=== PATIENT | female | born 1985 | race Caucasian/White ===

== ENCOUNTER 2019-07-12 07:26 | Observation (INO) ==
[~2019-07-12 07:26] MED LIST: BUPIVACAINE 0.25% W/ EPI - 10 ML VIAL ONE; CefOXitin Inj 2 GM in Sodium Chloride 0.9% 100 ML IV ONE; LIDOCAINE HCL 2 % 10 ML JELLY URO-JECT TOPICAL ONE; LIDOCAINE W/ SODIUM BICARB 0.5 ML SYR ONE; LIDOCAINE W/ SODIUM BICARB 0.5 ML SYR SUBD PRN; Lactated Ringers 1,000 ML PRIMARY IV ONE; Nasal Sanitizer POPSWAB ampule 3 AMP (Nozin) PREOP DOSE ENOS SCH; Sodium Chloride 0.9% 100 ML IV ONE
[2019-07-12 07:43] LABS: BILIRUBIN,URINE NEGATIVE (NEG); CLARITY,URINE Slightly Cloudy (CLEAR); COLOR,URINE YELLOW (Y); GLUCOSE, URINE (UA) NEGATIVE (NEG); OCCULT BLOOD,URINE LARGE (NEG); PH,URINE 5.5 (5.0-8.5); PROTEIN,URINE 100 mg/dl (NEG); UROBILINOGEN,URINE 0.2 EU/dL (0.2)
[2019-07-12 07:49] LABS: BACTERIA,URINE FEW; RBC,URINE 50-60 /hpf; RENAL EPITHELIAL CELLS,URINE MODERATE; SQUAMOUS EPITHELIAL CELL,UR MANY; URINE SAMPLE TYPE VOIDED SPECIMEN
[2019-07-12 08:03] LABS: Hematocrit [HCT] 35.9 % (37.0-47.0); Hemoglobin [HGB] 10.9 g/dL (12.0-16.0)
[2019-07-12] MEDS: Lactated Ringers 1,000 ML PRIMARY IV SCH ×2 (08:05→17:47)
[2019-07-12] MEDS ORDERED: ROCURONIUM 10 MG/1 ML - 5 ML VIAL IVP ONE ×3 (08:11→09:58)
[2019-07-12] MEDS ORDERED: MIDAZOLAM HCL 2 MG/2 ML VIAL ONE (08:12)
[2019-07-12] MEDS ORDERED: PROPOFOL 10 MG/1 ML (200 MG/20 ML) VIAL IV ONE (08:12)
[2019-07-12] MEDS ORDERED: fentaNYL Inj 250 MCG/5 ML VIAL ONE (08:12)
[2019-07-12] MEDS ORDERED: LIDOCAINE MPF 2% - 5 ML (20 MG/1 ML) ONE (08:12)
[2019-07-12] MEDS ORDERED: BUPIVACAINE 0.5% W/ EPI - 10 ML VIAL ONE ×2 (08:48→09:57)
[2019-07-12] MEDS ORDERED: KETOROLAC 30 MG/1 ML VIAL ONE (08:55)
[2019-07-12] MEDS ORDERED: ONDANSETRON 4 MG/2 ML VIAL ONE ×2 (08:55→13:16)
[2019-07-12] MEDS ORDERED: KETAMINE 100 MG/1 ML - 5 ML ONE (08:56)
[2019-07-12] MEDS ORDERED: Lactated Ringers 1,000 ML PRIMARY IV ONE ×2 (09:19→17:46)
[2019-07-12] MEDS ORDERED: LIDOCAINE HCL 2 % 10 ML JELLY URO-JECT TOPICAL PRN ×2 (09:20→11:41)
[2019-07-12] MEDS ORDERED: SUGAMMADEX SODIUM 200 MG/2 ML VIAL IV ONE (10:29)
[2019-07-12] MEDS ORDERED: Opium-Belladonna 30-16.2mg 1 EACH SUPP.RECT RECTAL ONE ×2 (11:08→11:15)
[2019-07-12] MEDS ORDERED: IBUPROFEN 800 MG TABLET PO PRN (11:41)
[2019-07-12] MEDS ORDERED: Ondansetron ODT Tab 8 MG TAB PO PRN (11:41)
[2019-07-12] MEDS ORDERED: HYDROmorphone 2 MG/1 ML IVP PRN ×2 (12:10→15:07)
[2019-07-12] MEDS ORDERED: ONDANSETRON 4 MG/2 ML VIAL IVP PRN (12:10)
[2019-07-12] MEDS ORDERED: fentaNYL Inj 100 MCG/2 ML VIAL IVP PRN (12:10)
[2019-07-12] MEDS ORDERED: LIDOCAINE W/ SODIUM BICARB 0.5 ML SYR SUBD PRN (12:10)
[2019-07-12] MEDS ORDERED: Lactated Ringers 1,000 ML PRIMARY IV SCH (12:15)
[2019-07-12] MEDS: oxyCODONE/APAP 7.5/325 Tab 1 TAB TAB PO PRN ×3 (12:49→23:03)
[2019-07-12] MEDS ORDERED: oxyCODONE/APAP 7.5/325 Tab 1 TAB TAB PO ONE (12:51)
[2019-07-12] MEDS ORDERED: HYDROmorphone 2 MG/1 ML ONE (14:35)
[2019-07-12] MEDS: KETOROLAC 15 MG/1 ML VIAL IVP SCH ×2 (16:05→18:29)
[2019-07-12] MEDS: DOCUSATE 100 MG CAPSULE PO SCH (20:18)
[2019-07-12 23:21] VITALS: O2SAT 92
[2019-07-13] MEDS: KETOROLAC 15 MG/1 ML VIAL IVP SCH ×2 (00:55→08:26)
[2019-07-13] MEDS: Lactated Ringers 1,000 ML PRIMARY IV SCH ×2 (02:36→05:37)
[2019-07-13] MEDS: oxyCODONE/APAP 7.5/325 Tab 1 TAB TAB PO PRN ×2 (04:33→12:35)
[2019-07-13] MEDS: DOCUSATE 100 MG CAPSULE PO SCH (08:24)
[2019-07-13 09:49] VITALS: BP 110/57; RESP 16; TEMP 98.2
== END 2019-07-13 12:38 | disposition home or self-care (01) ==
LOC: MED/SURG 07:26 → OR 07:26 → OPS 07:27
PROVIDERS: ADMIT Obstetrics & Gynecology; ATTEND Obstetrics & Gynecology

== ENCOUNTER 2019-07-27 14:44 | Inpatient (IN) ==
[2019-07-27] MEDS ORDERED: Sodium Chloride 0.9% 1,000 ML PRIMARY IV ONE (15:04)
[2019-07-27] MEDS ORDERED: MORPHINE SULFATE 4 MG/1 ML IVP ONE (15:04)
[2019-07-27] MEDS ORDERED: ONDANSETRON 4 MG/2 ML VIAL IVP ONE (15:04)
[2019-07-27 15:42] LABS: MEAN CORPUSCULAR HGB CONC 31.4 g/dL (33-37); MEAN CORPUSCULAR VOLUME 73 FL (81-99); MEAN PLATELET VOLUME 8.6 FL (7.4-12.2); RED BLOOD COUNT 4.39 10^6/uL (4.20-5.40)
[2019-07-27 15:43] LABS: BAND NEUTROPHILS % 1 % (0-10); BASOPHILS % (MANUAL) 0 % (0-1); EOSINOPHILS % (MANUAL) 0 % (0-8); METAMYELOCYTES % 0 %; MONOCYTES % (MANUAL) 1 % (0-12); MYELOCYTES % 0 %; NEUTROPHILS % (MANUAL) 87 % (50-80); PLATELET MORPHOLOGY COMMENT SEE COMMENTS (NORM); PROMYELOCYTES % 0 %; RBC MORPHOLOGY COMMENT SEE COMMENTS (NORM); WBC MORPHOLOGY COMMENT NORMAL MORPHOLOGY (NORM)
[2019-07-27] MEDS ORDERED: Lactated Ringers 1,000 ML PRIMARY IV SCH ×3 (17:15→20:15)
[2019-07-27] MEDS ORDERED: Nasal Sanitizer POPSWAB ampule 3 AMP (Nozin) PREOP DOSE ENOS SCH ×2 (17:15→17:28)
[2019-07-27] MEDS ORDERED: CefOXitin Inj 2 GM in Sodium Chloride 0.9% 100 ML IV ONE (17:28)
[2019-07-27] MEDS ORDERED: Sodium Chloride 0.9% 100 ML IV ONE (17:35)
[2019-07-27] MEDS ORDERED: ROCURONIUM 10 MG/1 ML - 5 ML VIAL IVP ONE ×2 (17:36→18:52)
[2019-07-27] MEDS ORDERED: fentaNYL Inj 250 MCG/5 ML VIAL ONE (17:39)
[2019-07-27] MEDS ORDERED: MIDAZOLAM HCL 2 MG/2 ML VIAL ONE (17:39)
[2019-07-27] MEDS ORDERED: PROPOFOL 10 MG/1 ML (200 MG/20 ML) VIAL IV ONE (17:39)
[2019-07-27] MEDS ORDERED: LIDOCAINE MPF 2% - 5 ML (20 MG/1 ML) ONE (17:39)
[2019-07-27] MEDS ORDERED: Lactated Ringers 1,000 ML PRIMARY IV ONE ×2 (17:53→18:56)
[2019-07-27] MEDS ORDERED: SODIUM CL 0.9% FOR INH 3 ML NEB NEB ONE (17:55)
[2019-07-27] MEDS ORDERED: KETAMINE 100 MG/1 ML - 5 ML ONE (18:18)
[2019-07-27] MEDS ORDERED: HYDROmorphone 2 MG/1 ML ONE (18:41)
[2019-07-27] MEDS ORDERED: ONDANSETRON 4 MG/2 ML VIAL ONE (18:54)
[2019-07-27] MEDS ORDERED: KETOROLAC 30 MG/1 ML VIAL ONE (18:54)
[2019-07-27] MEDS ORDERED: SUGAMMADEX SODIUM 200 MG/2 ML VIAL IV ONE (18:54)
[2019-07-27] MEDS ORDERED: BUPivacaine Inj 0.5% PF (5mg/ml) 10ml vial ONE (19:37)
[2019-07-27] MEDS ORDERED: BUPivacaine Inj 0.5% PF (5mg/ml) 30ml vial ONE (19:37)
[2019-07-27] MEDS ORDERED: BUPivacaine Liposome/PF (Exparel) Inj 20ml vial INFIL ONE (19:38)
[2019-07-27] MEDS ORDERED: Sodium Chloride 0.9% vial 10 ML ONE (19:39)
[2019-07-27] MEDS ORDERED: LIDOCAINE W/ SODIUM BICARB 0.5 ML SYR SUBD PRN (20:03)
[2019-07-27] MEDS ORDERED: fentaNYL Inj 100 MCG/2 ML VIAL IVP PRN (20:03)
[2019-07-27] MEDS ORDERED: HYDROmorphone 2 MG/1 ML IVP PRN (20:03)
[2019-07-27] MEDS ORDERED: ONDANSETRON 4 MG/2 ML VIAL IVP PRN ×2 (20:03→20:26)
[2019-07-27] MEDS: D5-1/2NS + 20mEq KCL 1,000 ML PRIMARY IV SCH (21:04)
[2019-07-27] MEDS: OXCARBAZEPINE 600 MG PO SCH (21:12)
[2019-07-27] MEDS: MORPHINE SULFATE 2 MG/1 ML IVP PRN (21:49)
[2019-07-28] MEDS: MORPHINE SULFATE 2 MG/1 ML IVP PRN ×3 (01:10→10:54)
[2019-07-28] MEDS: Acetaminophen 1000mg Inj 1,000 MG/100 ML VIAL IV PRN ×2 (02:09→11:47)
[2019-07-28 05:37] LABS: Hemoglobin [HGB] 10.4 g/dL (12.0-16.0); RED BLOOD COUNT 4.55 10^6/uL (4.20-5.40)
[2019-07-28 05:38] LABS: BASOPHILS # (AUTO) 0.03 10*3/UL; BASOPHILS % (AUTO) 0.4 % (0-1); EOSINOPHILS # (AUTO) 0.07 10*3/UL; EOSINOPHILS % (AUTO) 0.8 % (0-8); Hematocrit [HCT] 33.4 % (37.0-47.0); LYMPHOCYTES # (AUTO) 1.11 10*3/uL; MEAN CORPUSCULAR HGB CONC 31.1 g/dL (33-37); MEAN CORPUSCULAR VOLUME 73 FL (81-99); MEAN PLATELET VOLUME 9.1 FL (7.4-12.2); MONOCYTES # (AUTO) 0.53 10*3/UL (0.3-0.8); MONOCYTES % (AUTO) 6.3 % (5-15); NEUTROPHILS # (AUTO) 6.74 10*3/UL; NEUTROPHILS % (AUTO) 79.4 % (50-80); PLATELET MORPHOLOGY COMMENT NORMAL MORPHOLOGY (NORM); RBC MORPHOLOGY COMMENT NORMAL MORPHOLOGY (NORM); WBC MORPHOLOGY COMMENT NORMAL MORPHOLOGY (NORM)
[2019-07-28 06:00] LABS: BLOOD UREA NITROGEN 8 mg/dL (7-22)
[2019-07-28 06:20] LABS: HIV ANTIBODY NEGATIVE (N); HIV-1 P24 ANTIGEN NEGATIVE (N)
[2019-07-28] MEDS: D5-1/2NS + 20mEq KCL 1,000 ML PRIMARY IV SCH ×2 (06:49→18:44)
[2019-07-28] MEDS: FAMOTIDINE 20 MG/2 ML VIAL IVP SCH (08:38)
[2019-07-28] MEDS: VENLAFAXINE XR 75 MG CAP PO SCH (08:38)
[2019-07-28] MEDS: LEFLUNOMIDE 20 MG PO SCH (11:29)
[2019-07-28] MEDS: PHENTERMINE HCL 37.5 MG PO SCH (11:29)
[2019-07-28] MEDS: OXCARBAZEPINE 600 MG PO SCH ×2 (11:29→20:27)
[2019-07-28] MEDS: SIMETHICONE 80 MG TABLET PO SCH ×3 (15:40→20:26)
[2019-07-28] MEDS: HYDROcodone-APAP 7.5 MG-325 MG TABLET PO PRN ×2 (17:26→23:29)
[2019-07-29] MEDS: HYDROcodone-APAP 7.5 MG-325 MG TABLET PO PRN ×5 (03:58→21:10)
[2019-07-29] MEDS: D5-1/2NS + 20mEq KCL 1,000 ML PRIMARY IV SCH ×3 (07:56→22:45)
[2019-07-29] MEDS: VENLAFAXINE XR 75 MG CAP PO SCH (08:16)
[2019-07-29] MEDS: SIMETHICONE 80 MG TABLET PO SCH ×4 (08:16→21:11)
[2019-07-29] MEDS: FAMOTIDINE 20 MG/2 ML VIAL IVP SCH (08:17)
[2019-07-29] MEDS: LEFLUNOMIDE 20 MG PO SCH (08:17)
[2019-07-29] MEDS: PHENTERMINE HCL 37.5 MG PO SCH (08:17)
[2019-07-29] MEDS: OXCARBAZEPINE 600 MG PO SCH ×2 (08:18→21:07)
[2019-07-30] MEDS: HYDROcodone-APAP 7.5 MG-325 MG TABLET PO PRN ×5 (01:04→19:24)
[2019-07-30] MEDS: FAMOTIDINE 20 MG/2 ML VIAL IVP SCH (08:22)
[2019-07-30] MEDS: SIMETHICONE 80 MG TABLET PO SCH ×5 (08:22→21:00)
[2019-07-30] MEDS: VENLAFAXINE XR 75 MG CAP PO SCH (08:22)
[2019-07-30] MEDS ORDERED: MAGNESIUM 400 MG/5 ML - 30 ML (MILK OF MAGNESIA) PO ONE (09:04)
[2019-07-30] MEDS: OXCARBAZEPINE 600 MG PO SCH (09:08)
[2019-07-30] MEDS: PHENTERMINE HCL 37.5 MG PO SCH (09:08)
[2019-07-30] MEDS: LEFLUNOMIDE 20 MG PO SCH (09:08)
[2019-07-30] MEDS: FAMOTIDINE 20 MG TABLET PO SCH (09:12)
[2019-07-30 11:24] LABS: BLOOD UREA NITROGEN 7 mg/dL (7-22)
[2019-07-30 11:27] LABS: Hemoglobin [HGB] 8.4 g/dL (12.0-16.0); RED BLOOD COUNT 3.76 10^6/uL (4.20-5.40)
[2019-07-30 11:28] LABS: Hematocrit [HCT] 27.5 % (37.0-47.0); MEAN CORPUSCULAR HGB CONC 30.6 g/dL (33-37); MEAN CORPUSCULAR VOLUME 73 FL (81-99); MEAN PLATELET VOLUME 7.9 FL (7.4-12.2)
[2019-07-30 11:29] LABS: BASOPHILS # (AUTO) 0.01 10*3/UL; BASOPHILS % (AUTO) 0.2 % (0-1); EOSINOPHILS # (AUTO) 0.04 10*3/UL; EOSINOPHILS % (AUTO) 0.8 % (0-8); LYMPHOCYTES # (AUTO) 1.04 10*3/uL; MONOCYTES # (AUTO) 0.31 10*3/UL (0.3-0.8); MONOCYTES % (AUTO) 5.9 % (5-15); NEUTROPHILS # (AUTO) 3.83 10*3/UL; NEUTROPHILS % (AUTO) 73.2 % (50-80); PLATELET MORPHOLOGY COMMENT NORMAL MORPHOLOGY (NORM); RBC MORPHOLOGY COMMENT NORMAL MORPHOLOGY (NORM); WBC MORPHOLOGY COMMENT NORMAL MORPHOLOGY (NORM)
[2019-07-30] MEDS: ENOXAPARIN SODIUM 40 MG/0.4 ML SYRINGE SUBCUT SCH (14:44)
[2019-07-30] MEDS: D5-1/2NS + 20mEq KCL 1,000 ML PRIMARY IV SCH ×2 (16:03→16:53)
[2019-07-31] MEDS: HYDROcodone-APAP 7.5 MG-325 MG TABLET PO PRN ×4 (00:49→12:24)
[2019-07-31] MEDS: SIMETHICONE 80 MG TABLET PO SCH (08:26)
[2019-07-31] MEDS: FAMOTIDINE 20 MG TABLET PO SCH (08:26)
[2019-07-31] MEDS: VENLAFAXINE XR 75 MG CAP PO SCH (08:26)
[2019-07-31] MEDS: ENOXAPARIN SODIUM 40 MG/0.4 ML SYRINGE SUBCUT SCH (08:27)
[2019-07-31] MEDS ORDERED: BISACODYL 10 MG SUPPOSITORY RECTAL ONE (08:43)
[2019-07-31 11:03] VITALS: BP 123/80; RESP 18; TEMP 98; O2SAT 91
== END 2019-07-31 12:37 | disposition home or self-care (01) | DRG 982 ==
LOC: ER 14:44 → OR 17:38 → OPS 17:40 → MED/SURG 20:11
PROVIDERS: ADMIT Surgery; ATTEND Surgery